=== PATIENT | female | born 1975 | race Caucasian/White ===

== ENCOUNTER 2023-07-29 18:02 | Emergency (ER) | payer SELFPAY ==
[2023-07-29 19:08] LABS: Absolute Lymphocytes (CBC) 3.3 K/uL (0.7-4.9); Hematocrit 36.6 % (36.0-45.0); Lymphocytes % 23.8 % (15.3-44.8); MCV 83.4 fL (80-100); MPV 8.7 fL (7.6-11.3); Platelets 345 thou/uL (152-406); RBC Red Blood Cell Count 4.39 M/uL (3.86-4.86)
[2023-07-29 19:11] LABS: Specific Gravity < 1.005 (1.005-1.030)
[2023-07-29 19:13] LABS: Specific Gravity < 1.005 (1.005-1.030); Urine Bacteria None Seen /HPF (<20); Urine Bilirubin NEGATIVE (Negative); Urine Blood Negative (Negative); Urine Clarity Turbid (Clear); Urine Color Colorless (Yellow); Urine Crystals Unidentified Few /HPF (None Seen); Urine Glucose NEGATIVE (Negative); Urine Protein NEGATIVE (Negative); Urine RBC <5 /HPF (None Seen); Urine Urobilinogen Normal (Normal)
[2023-07-29 19:15] LABS: Protime INR 1.03
[2023-07-29 19:35] LABS: ALT/SGPT 14 U/L (13-56); Albumin 3.5 g/dL (3.4-5.0); Alkaline Phosphatase 93 U/L (45-117); BUN Blood Urea Nitrogen 4 mg/dL (7-18); Bicarbonate 26 mEq/L (21-32); Bilirubin Direct 0.1 mg/dL (0-0.2); Bilirubin Indirect, Calculated 0.4 mg/dL (0.2-0.8); Bilirubin Total 0.5 mg/dL (0.2-1.0); Glomerular Filtration Rate 112 ml/min (=/>90); Glucose Level 84 mg/dL (74-106); Potassium 3.1 mEq/L (3.5-5.1); Protein, Total 8.3 g/dL (6.4-8.2); Sodium Level 139 mEq/L (136-145)
[2023-07-29 19:36] LABS: AST/SGOT < 4 U/L (15-37)
[2023-07-29] MEDS ORDERED: CODEINE 30MG/APAP 300MG TAB ONE (21:49)
[2023-07-29] MEDS ORDERED: LORAZEPAM 1 MG TABLET ONE (21:50)
[2023-07-29 22:22] LABS: SARS-COV-2 RT PCR NEGATIVE (NEGATIVE)
[2023-07-29] MEDS ORDERED: NA CHLORIDE 0.9% 1,000 ML ONE (22:27)
[2023-07-29 22:46] LABS: Barbiturates NEGATIVE (NEGATIVE); Benzodiazepines NEGATIVE (NEGATIVE); Cocaine NEGATIVE (NEGATIVE); METHAMPHETAM NEGATIVE (NEGATIVE); Methadone NEGATIVE (NEGATIVE); Opiates NEGATIVE (NEGATIVE); Phencyclidine NEGATIVE (NEGATIVE); THC Cannibis POSITIVE (NEGATIVE)
[2023-07-30] MEDS ORDERED: POTASSIUM CL SA 10 MEQ TAB PO ONE (03:24)
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
[2023-07-30 11:23] VITALS: TEMP 98; O2SAT 99
[2023-07-30 11:27] VITALS: BP 112/76
--- NOTE | 2023-07-30 13:27 | EKG ---
Test Date: 2023-07-29 Test Time: 20:04:22 Transit Man: DON MEASUREMENT RESULTS: Intervals: Rate: 107 PA: 156 QRSD: 80 QT: 344 QTc: 459 [place]: P: 86 PA: 156 QRS: 66 T: 50 INTERPRETIVE STATEMENTS: Sinus tachycardia Otherwise normal ECG No previous ECG available for comparison Electronically Signed On 07-30-23 13:26:21 SCREEN PRINTING PASTER by Cristhian Rosales
== END 2023-07-30 10:57 ==
LOC: ER 18:02
DX: R45.850 Homicidal ideations (principal); F10.129 Alcohol abuse with intoxication, unspecified; F12.90 Cannabis use, unspecified, uncomplicated; F43.0 Acute stress reaction; R44.1 Visual hallucinations; F31.9 Bipolar disorder, unspecified; F17.210 Nicotine dependence, cigarettes, uncomplicated; Z88.1 Allergy status to other antibiotic agents
CPT/HCPCS: 0240U; 36415; 80048; 80076; 80143; 80179; 80307; 81001; 81025; 82077; 85025; 85610; 85730; 87070; 87081; 93005; 96360; 96361; 99285; J7030